=== PATIENT | male | born 1960 | race Caucasian/White ===

== ENCOUNTER 2021-10-31 08:51 | Emergency (ER) | payer OTHER, SELFPAY ==
[2021-10-31] MEDS ORDERED: Lidocaine 1% PF 5 ML VIAL ONE (09:49)
[2021-10-31] MEDS ORDERED: Boostrix 0.5 ML (Tdap) VIAL ONE (09:49)
[2021-10-31] MEDS ORDERED: cefTRIAXone\\ROCEPHIN 1 GM VIAL ONE (09:49)
[2021-10-31] MEDS ORDERED: HYDROcodone/Acetaminophen 10/325 mg Tablet ONE (09:49)
== END 2021-10-31 10:24 | disposition home or self-care (01) ==
LOC: BURERS 08:51
DX: S81.851A Open bite, right lower leg, initial encounter (principal); L08.9 Local infection of the skin and subcutaneous tissue, unspecified; F17.220 Nicotine dependence, chewing tobacco, uncomplicated; W54.0XXA Bitten by dog, initial encounter; Z23 Encounter for immunization
CPT/HCPCS: 90471; 90715; 96372; J0696

== ENCOUNTER 2021-11-04 10:20 | Emergency (ER) | payer SELFPAY ==
[2021-11-04] MEDS ORDERED: Fentanyl 100 MCG/2 ML VIAL ONE (10:45)
[2021-11-04] MEDS ORDERED: Ampicillin/Sulbactam 3 GM VIAL ONE (10:45)
[2021-11-04 10:48] LABS: Hemoglobin 13.9 g/dL (14.0-18.0); Mean Corpuscular HGB CONC 32.8 g/dL (32.0-36.0); Mean Corpuscular Hemoglobin 27.4 pg (27.0-31.0); Mean Corpuscular Volume 83.7 fL (78.0-98.0); Mean Platelet Volume 6.7 fL (7.4-10.4); Platelet Count 501 thou/uL (130-400); RBC Distribution Width 13.5 % (11.5-14.5); Red Blood Cell (RBC) Count 5.06 mill/uL (4.70-6.10); White Blood Cell (WBC) Count 24.3 thou/uL (4.8-10.8)
[2021-11-04 10:58] LABS: ALT (SGPT) 170 U/L (8-55); AST (SGOT) 149 U/L (5-34); Albumin 2.9 g/dL (3.4-4.8); Alkaline Phosphatase 181 U/L (40-110); Anion Gap 13 mmol/L (10-20); BUN (Urea Nitrogen) 18 mg/dL (8.4-25.7); Bilirubin, Total 0.9 mg/dL (0.2-1.2); Calc. Creatinine Clearance 0 mL/min (70-130); Calcium 8.4 mg/dL (7.8-10.44); Carbon Dioxide 30 mmol/L (23-31); Chloride 92 mmol/L (98-107); Globulin 3.6 g/dL (2.4-3.5); Glucose 96 mg/dL (80-115); Potassium 3.4 mmol/L (3.5-5.1); Protein, Total 6.5 g/dL (5.8-8.1); Sodium 132 mmol/L (136-145)
[2021-11-04 11:14] LABS: Band 3 % (5-11); Lymphocytes 8 % (21-51); MDiff Complete? YES; Monocytes 6 % (0-10); Neutrophil 83 % (42-75); Platelet Morphology Comment Appears Increased; Reflex for Review?? NO; Toxic Granulation MODERATE
[2021-11-04 19:52] LABS: SARS-CoV-2 PCR by NAA DETECTED (NotDetected)
== END 2021-11-04 14:50 | disposition short-term general hospital (02) ==
LOC: BURERS 10:20
DX: U07.1 COVID-19 (principal); S81.851D Open bite, right lower leg, subsequent encounter; L08.9 Local infection of the skin and subcutaneous tissue, unspecified; F17.220 Nicotine dependence, chewing tobacco, uncomplicated; W54.0XXD Bitten by dog, subsequent encounter; Z79.899 Other long term (current) drug therapy
CPT/HCPCS: 36415; 80053; 83605; 85025; 87040; 87070; 87077; 87205; 96365; 96375; J0295; J3010; U0003; U0005

== ENCOUNTER 2024-04-14 10:06 | Emergency (ER) | payer OTHER, SELFPAY ==
[2024-04-14 10:34] LABS: #Basophils 0.1 thou/uL (0.0-0.2); #Eosinphils 0.1 thou/uL (0.0-0.7); #Lymphocytes 1.6 thou/uL (1.20-3.40); #Monocytes 0.6 thou/uL (0.11-0.59); #Neutrophils 6.3 thou/uL (1.40-6.50); %Basophils 0.7 % (0.0-1.0); %Lymphocytes 18.3 % (21.0-51.0); %Monocytes 7.3 % (0.0-10.0); %Neutrophils 72.8 % (42.0-75.0); Hematocrit 49.4 % (42.0-52.0); Hemoglobin 15.9 g/dL (14.0-18.0); Mean Corpuscular HGB CONC 32.2 g/dL (32.0-36.0); Mean Corpuscular Hemoglobin 25.4 pg (27.0-31.0); Mean Corpuscular Volume 78.9 fl (78.0-98.0); Mean Platelet Volume 6.3 fL (7.4-10.4); Platelet Count 273 10x3/uL (130-400); RBC Distribution Width 14.3 % (11.5-14.5); Red Blood Cell (RBC) Count 6.26 mill/uL (4.70-6.10); White Blood Cell (WBC) Count 8.7 10x3/uL (4.8-10.8)
[2024-04-14] MEDS ORDERED: Labetalol HCl 100 MG/20 ML VIAL ONE (10:40)
[2024-04-14 10:48] LABS: ALT (SGPT) 23 U/L (8-55); AST (SGOT) 19 U/L (5-34); Albumin 3.8 g/dL (3.4-4.8); Alkaline Phosphatase 112 U/L (40-110); Anion Gap 15 mmol/L (10-20); BUN (Urea Nitrogen) 16 mg/dL (8.4-25.7); Bilirubin, Total 0.7 mg/dL (0.2-1.2); Calc. Creatinine Clearance 0 mL/min (70-130); Calcium 9.4 mg/dL (7.8-10.44); Carbon Dioxide 27 mmol/L (23-31); Chloride 99 mmol/L (98-107); Estimated GFR 57; Globulin 3.6 g/dL (2.4-3.5); Glucose 137 mg/dL (80-115); Potassium 3.2 mmol/L (3.5-5.1); Protein, Total 7.4 g/dL (5.8-8.1); Sodium 138 mmol/L (136-145); Troponin I 0.033 ng/mL (< 0.028)
[2024-04-14] MEDS ORDERED: Aspirin Chewable 81 MG TAB ONE (11:31)
[2024-04-14] MEDS ORDERED: niCARdipine 25 MG/10 ML SDV ONE (11:31)
== END 2024-04-14 12:45 | disposition short-term general hospital (02) ==
LOC: BURERS 10:06
DX: I16.0 Hypertensive urgency (principal); N28.9 Disorder of kidney and ureter, unspecified; E86.0 Dehydration; R79.89 Other specified abnormal findings of blood chemistry; I67.89 Other cerebrovascular disease; R29.700 NIHSS score 0; F17.220 Nicotine dependence, chewing tobacco, uncomplicated
CPT/HCPCS: 36416; 70450; 80053; 84484; 85025; 93005; 96361; 96365; 96375